=== PATIENT | male | born 1985 | race African-American/Black ===

== ENCOUNTER 2016-12-06 21:10 | Emergency (ER) | payer MEDICAID, SELFPAY ==
[2016-12-06] MEDS ORDERED: predniSONE 20 MG TAB ONE (22:12)
== END 2016-12-06 22:15 | disposition home or self-care (01) ==
LOC: NAV ERS 21:10
DX: J42 Unspecified chronic bronchitis (principal); I10 Essential (primary) hypertension; J45.909 Unspecified asthma, uncomplicated; F17.210 Nicotine dependence, cigarettes, uncomplicated
CPT/HCPCS: 99283; J7506

== ENCOUNTER 2017-05-30 17:45 | Emergency (ER) | payer SELFPAY ==
[2017-05-30] MEDS ORDERED: Ibuprofen 800 MG TAB ONE (17:56)
--- NOTE | 2017-05-30 18:49 | RAD ---
CHEST PA AND LATERAL: HISTORY: A 32-year-old male with cough. FINDINGS: Heart size is normal. The lungs are clear. IMPRESSION: No evidence of pneumonia or other acute process. POS: [facility]
[2017-05-30] MEDS ORDERED: Azithromycin 250 MG TAB ONE (18:51)
== END 2017-05-30 18:57 | disposition home or self-care (01) ==
LOC: NAV ERS 17:45
DX: J20.9 Acute bronchitis, unspecified (principal); J02.9 Acute pharyngitis, unspecified; J45.909 Unspecified asthma, uncomplicated; I10 Essential (primary) hypertension; F17.210 Nicotine dependence, cigarettes, uncomplicated
CPT/HCPCS: 71020; 87081; 87430; 94640; J7620

== ENCOUNTER 2017-10-02 16:02 | Emergency (ER) | payer SELFPAY ==
[2017-10-02 16:53] LABS: #Basophils 0.1 thou/uL (0.0-0.2); #Eosinphils 0.2 thou/uL (0.0-0.7); #Lymphocytes 1.4 thou/uL (1.20-3.40); #Monocytes 0.8 thou/uL (0.11-0.59); #Neutrophils 6.8 thou/uL (1.40-6.50); %Basophils 1.3 % (0.0-1.0); %Eosinophils 2.5 % (0.0-10.0); %Lymphocytes 14.8 % (21.0-51.0); %Monocytes 8.3 % (0.0-10.0); %Neutrophils 73.1 % (42.0-75.0); Hemoglobin 14.5 g/dL (14.0-18.0); Mean Corpuscular HGB CONC 32.9 g/dL (32.0-36.0); Mean Corpuscular Hemoglobin 29.9 pg (27.0-31.0); Mean Platelet Volume 8.7 fL (7.4-10.4); Platelet Count 204 thou/uL (130-400); RBC Distribution Width 12.5 % (11.5-14.5); Red Blood Cell (RBC) Count 4.83 mill/uL (4.70-6.10); White Blood Cell (WBC) Count 9.2 thou/uL (4.8-10.8)
[2017-10-02] MEDS ORDERED: Sodium Chloride 0.9% 1,000 ML ONE (16:55)
[2017-10-02 17:04] LABS: Bilirubin Negative (Negative); Blood, Urine Trace (Negative); Glucose, Urine (Dipstick) Negative (Negative); Leukocyte Negative (Negative); Nitrite Negative (Negative); Protein, Urine (Dipstick) 30 mg/dL (Neg-Trace); Specific Gravity, Urine 1.025 (1.005-1.030); Urobilinogen 0.2 mg/dL (0.2-1.0); pH, Urine 6.5 (5.0-9.0)
[2017-10-02 17:06] LABS: Clarity SL HAZY (Clear)
[2017-10-02 17:07] LABS: ALT (SGPT) 16 U/L (8-55); AST (SGOT) 28 U/L (5-34); Albumin 3.7 g/dL (3.5-5.0); Alcohol Less than 10 mg/dL (Less than 10); Alkaline Phosphatase 52 U/L (40-150); Anion Gap 19 mmol/L (10-20); BUN (Urea Nitrogen) 11 mg/dL (8.9-20.6); Bilirubin, Total 0.3 mg/dL (0.2-1.2); CK (CPK) 551 U/L (30-200); Calc. Creatinine Clearance 0 mL/min (70-130); Calcium 8.5 mg/dL (7.8-10.44); Carbon Dioxide 18 mmol/L (22-29); Chloride 106 mmol/L (98-107); Estimated GFR-MDRD 82; Globulin 2.7 g/dL (2.4-3.5); Glucose 87 mg/dL (70-105); Potassium 3.7 mmol/L (3.5-5.1); Protein, Total 6.4 g/dL (6.0-8.3); Sodium 139 mmol/L (136-145)
[2017-10-02 17:10] LABS: CKMB 1.8 ng/mL (0-6.6); Troponin I 0.013 ng/mL (< 0.028)
[2017-10-02 17:19] LABS: RBC/HPF 0-3 HPF (0-3); Transitional Epithelial 0-3 HPF (0-3)
[2017-10-02 17:20] LABS: Cocaine Metabolite Screen Detected (NotDetected); Phencyclidine (PCP) Detected (NotDetected); THC/Cannabinoid Screen Detected (NotDetected)
[2017-10-02 17:21] LABS: Amphetamine Detected (NotDetected); Barbiturates Screen Not Detected (NotDetected); Benzodiazepine Screen Not Detected (NotDetected); Medtox Control Line Valid? VALID (VALID); Methadone Not Detected (NotDetected); Methamphetamine Detected (NotDetected); Opiate Screen Not Detected (NotDetected); Oxycodone Screen Not Detected (NotDetected); Tricyclic Screen Not Detected (NotDetected)
== END 2017-10-02 20:00 | disposition left against medical advice (07) ==
LOC: EDBD → NAV ERS 16:02
DX: F15.10 Other stimulant abuse, uncomplicated (principal); F14.10 Cocaine abuse, uncomplicated; I10 Essential (primary) hypertension; J45.909 Unspecified asthma, uncomplicated; F17.210 Nicotine dependence, cigarettes, uncomplicated
CPT/HCPCS: 51701; 80053; 80306; 80307; 81003; 81015; 82550; 82553; 84443; 84484; 85025; 93005; 96360; 96361; J7050

== ENCOUNTER 2017-10-18 14:03 | Emergency (ER) | payer SELFPAY ==
[2017-10-18] MEDS ORDERED: Lidocaine 1% 20 ML MDV ONE (14:26)
[2017-10-18] MEDS ORDERED: Ibuprofen 800 MG TAB ONE (14:28)
[2017-10-18 14:29] LABS: Bilirubin Negative (Negative); Blood, Urine Small (Negative); Glucose, Urine (Dipstick) Negative (Negative); Leukocyte Large (Negative); Nitrite Negative (Negative); Protein, Urine (Dipstick) Negative (Neg-Trace); Specific Gravity, Urine 1.015 (1.005-1.030); Urobilinogen 0.2 mg/dL (0.2-1.0); pH, Urine 6.5 (5.0-9.0)
[2017-10-18] MEDS ORDERED: Bacitracin Zinc 1 Packet ONE (14:36)
[2017-10-18 14:38] LABS: Bacteria/HPF 2+ HPF (None Seen); Clarity SL HAZY (Clear); RBC/HPF 0-3 HPF (0-3); Squamous Epithelial 0-3 HPF (0-3)
== END 2017-10-18 14:52 | disposition home or self-care (01) ==
LOC: EDBD → NAV ERS 14:03
DX: L02.212 Cutaneous abscess of back [any part, except buttock and flank] (principal); N39.0 Urinary tract infection, site not specified; I10 Essential (primary) hypertension; J45.909 Unspecified asthma, uncomplicated; F17.210 Nicotine dependence, cigarettes, uncomplicated
CPT/HCPCS: 10060; 81003; 81015; 99406; J2001

== ENCOUNTER 2017-10-20 13:31 | Emergency (ER) | payer SELFPAY ==
[2017-10-20] MEDS ORDERED: Sulfameth/Trimethoprim DS 800-160mg TAB ONE (13:56)
[2017-10-20] MEDS ORDERED: Ibuprofen 800 MG TAB ONE (13:57)
== END 2017-10-20 14:02 | disposition home or self-care (01) ==
LOC: NAV ERS 13:31
DX: L02.212 Cutaneous abscess of back [any part, except buttock and flank] (principal); I10 Essential (primary) hypertension; J45.909 Unspecified asthma, uncomplicated; F32.9 Major depressive disorder, single episode, unspecified; F17.210 Nicotine dependence, cigarettes, uncomplicated
CPT/HCPCS: 99282